=== PATIENT | male | born 1965 | race Caucasian/White ===

== ENCOUNTER 2018-04-20 10:42 | Inpatient (IN) ==
[2018-04-20] MEDS ORDERED: Ondansetron ODT 4 MG TAB.RAPDIS SL ONE (11:06)
[2018-04-20] MEDS ORDERED: *HR* LORazepam 1 MG TABLET PO ONE (11:06)
[2018-04-20] MEDS ORDERED: Famotidine 20 MG TABLET PO STA (11:06)
[2018-04-20] MEDS ORDERED: Multivit/Ca/Min/Fe/FA 1 TAB TABLET PO STA (11:07)
[2018-04-20] MEDS ORDERED: Thiamine (B-1) 100 MG TABLET PO ONE (11:07)
--- NOTE | 2018-04-20 11:11 | Emergency Department Note ---
Disposition Clinical Impression: Alcohol withdrawal delirium, acute, hyperactive Disposition: Admitted As Inpatient Condition: Fair Referrals: NONE,PCP [Primary Care Provider] - Psych HPI - General Chief Complaint: ED Psychiatric Symptoms Stated Complaint: Medical clearance for SHARMILA Time Seen by Provider: 04/20/18 10:50 Source: patient Mode of arrival: ambulatory Limitations: no limitations Nursing Notes Reviewed: Yes Vital Signs Reviewed: Yes - History of Present Illness HPI Narrative: Patient presents for evaluation of medical clearance. Patient is checking himself into [facility] detox center. Patient has a significant history of alcohol abuse. Patient drinks 20 beers daily for greater than 10 years. Patient states that he has gone through withdrawal several times. Patient states that he is starting to become slightly anxious and his stomach is a little upset. He is concerned that he is taking a lot of ibuprofen and it is upset because of this. The patient does not have fever or chills. Patient does have chest pain but said he was diagnosed with a broken rib on Saturday at [facility]. Patient does not have cough or productive sputum. Patient states his stomach is upset which he thinks is from ibuprofen use. Patient does not have abdominal tenderness. Patient overall does not look toxic but does appear to have mild anxiety and a slight tremor with his arms extended. The patient states that he can get treatment for his alcohol withdrawal at the center. The patient will get requested blood work as well as symptomatic treatment while in the emergency. - Related Data Home Medications Medication Instructions Recorded Confirmed Duloxetine HCl [Cymbalta] 60 mg PO DAILY 04/20/18 04/20/18 Gabapentin [Neurontin] 600 mg PO TID 04/20/18 04/20/18 Lisinopril [Zestril] 20 mg PO DAILY 04/20/18 04/20/18 Loratadine [Allergy Relief] 10 mg PO DAILY 04/20/18 04/20/18 Allergies Allergy/AdvReac Type Severity Reaction Status Date / Time ciprofloxacin [From Cipro] Allergy Hives Verified 04/20/18 10:47 codeine Allergy Nausea Verified 08/08/15 19:36 Review of Systems: CONSTITUTIONAL: No weight loss, fever, chills, weakness or fatigue. HEENT: Eyes: No visual changes. Ears, Nose, Throat: No hearing loss, difficulty talking or unable to swallow. SKIN: No rash or itching. CARDIOVASCULAR: Chest pain related to previously diagnosed rib fracture RESPIRATORY: No shortness of breath, cough or sputum. GASTROINTESTINAL: Nausea related to NSAID use No anorexia, vomiting or diarrhea. No abdominal pain or blood. GENITOURINARY: No burning on urination or hematuria. NEUROLOGICAL: No headache, dizziness, syncope, paralysis, ataxia, numbness or tingling in the extremities. No change in bowel or bladder control. MUSCULOSKELETAL: No muscle pain, back pain, joint pain or stiffness. Past Medical History - Past Medical History Medical history: Reports: no medical history Surgical history: Reports: orthopedic, other Psychiatric history: Reports: no psych history - Social History Smoking Status: Current every day smoker Smokeless Tobacco Status: No Alcohol use: Reports: none Drug use: Reports: opiates, other Physical Exam General: Mildly anxious but Well appearing, nontoxic, Head: Normocephalic Atraumatic Eyes: PERRL, EOMI ENT: Airway patent, no stridor Neck: supple, no meningismus Chest: Lungs clear to auscultation bilateral Cardiac: Regular rate and rhythm, no murmurs, rubs or gallops Abdomen: soft, nontender, nondistended; no guarding, rebound, or tenderness to percussion Skin: No rash, normal skin tone Neuro: Mild tremor to the upper extremities when held in front of his body Alert and Oriented to person, place, and time; No focal deficit, CN 2-12 symmetric and intact Course - Reevaluation(s) Reevaluation #1: The patient received initial medications by mouth secondary to him are to be beginning to have agitation. During his stay he did receive Zofran but still became nauseous enough to throw up his medications. The patient has become visibly more anxious as well as tremulous. Patient will receive IV hydration admission to the hospital for alcohol withdrawal as his facility is not able to us administer IV medications. - Consultations Consultation #1: Discussed with Dr. Haney. Patient accepted for admission. Vital Signs Temperature 98.2 F 04/20/18 10:48 Pulse Rate 83 04/20/18 10:48 Respiratory Rate 04/20/18 10:48 Blood Pressure 182/111 04/20/18 10:48 O2 Sat by Pulse Oximetry 97 04/20/18 10:48 Temperature 98.2 F 04/20/18 11:14 Pulse Rate 83 04/20/18 11:14 Respiratory Rate 20 04/20/18 11:14 Blood Pressure 182/111 04/20/18 11:14 O2 Sat by Pulse Oximetry 97 04/20/18 11:14 Oxygen Delivery Oxygen Delivery Room Air Psych - Lab Data Result diagrams: 04/20/18 11:24 04/20/18 11:24 Lab Results 04/20/18 04/20/18 04/20/18 Range/Units 11:05 11:05 11:24 WBC 7.4 (4.3-11.1) K/mcL RBC 4.80 (4.19-5.50) M/mcL Hgb 15.9 (12.9-16.9) g/dL Hct 44.3 (37.5-50.1) % MCV 92.3 (83.0-100.0) fL MCH 33.1 (28.0-33.3) pg MCHC 35.9 H (31.6-35.5) g/dL RDW 13.9 (11.5-14.5) % Plt Count 200 (140-400) K/mcL MPV 8.8 L (9.4-12.4) fL Immature Gran % 0.3 (0-4) % Seg Neutrophils % 61.4 % Lymphocytes % 27.4 % Monocytes % 7.0 % Eosinophils % 3.0 % Basophils % 0.9 % Neutrophils # 4.6 (1.6-8.9) K/mcL Lymphocytes # 2.0 (0.6-4.6) K/mcL Monocytes # 0.5 (0.0-1.3) K/mcL Eosinophils # 0.2 (0.0-0.6) K/mcL Basophils # 0.1 (0.0-0.2) K/mcL Sodium (136-145) mEq/L Potassium (3.5-5.1) mEq/L Chloride (98-107) mEq/L Carbon Dioxide (23-29) mEq/L BUN (6-20) mg/dL Creatinine (0.70-1.30) mg/dL Est GFR ( Amer) (> 60) Est GFR (Non-Af Amer) (> 60) BUN/Creatinine Ratio (6-26) Glucose (70-105) mg/dL Calculated Osmolality (280-300) Calcium (8.6-10.3) mg/dL Total Bilirubin (0.3-1.0) mg/dL AST (13-39) Units/L ALT (7-52) Units/L Alkaline Phosphatase (34-104) Units/L Serum Total Protein (6.4-8.9) g/dL Albumin (3.5-5.7) g/dL Globulin (2.4-3.5) g/dL Albumin/Globulin Ratio (1.1-2.2) Triglycerides (< 150) mg/dL Cholesterol (< 200) mg/dL LDL Cholesterol, Calc (0-99) mg/dL VLDL Cholesterol, Calc (< 31) mg/dL HDL Cholesterol (40-59) mg/dL Cholesterol/HDL Ratio (0-4.9) Urine Color Yellow (Yellow) Urine Clarity Clear (Clear) Urine pH 7.5 (5.0-8.0) pH Units Ur Specific [place] 1.009 L (1.010-1.025) Urine Protein Negative (Neg-Trace) mg/dL Urine Glucose (UA) Normal (Normal) mg/dL Urine Ketones Negative (Negative) mg/dL Urine Blood Negative (Negative) Urine Nitrite Negative (Negative) Urine Bilirubin Negative (Negative) Urine Urobilinogen Normal (Normal) mg/dL Ur Leukocyte Esterase Negative (Negative) Ur Culture Indicated? NO (NO) Urine Opiates Screen Negative (Oswlqk=045) ng/mL Ur Barbiturates Screen Negative (Dhobkj=182) ng/mL Ur Phencyclidine Scrn Negative (Cutoff=25) ng/mL Ur Amphetamines Screen Negative (Mfmess=7409) ng/mL U Benzodiazepines Scrn Negative (Grlvlp=049) ng/mL Urine Cocaine Screen Negative (Cutoff= 300) ng/mL U Marijuana (THC) Screen Negative (Cutoff = 50) ng/mL Ethyl Alcohol (Less than 10) mg/dL 04/20/18 04/20/18 Range/Units 11:24 11:24 WBC (4.3-11.1) K/mcL RBC (4.19-5.50) M/mcL Hgb (12.9-16.9) g/dL Hct (37.5-50.1) % MCV (83.0-100.0) fL MCH (28.0-33.3) pg MCHC (31.6-35.5) g/dL RDW (11.5-14.5) % Plt Count (140-400) K/mcL MPV (9.4-12.4) fL Immature Gran % (0-4) % Seg Neutrophils % % Lymphocytes % % Monocytes % % Eosinophils % % Basophils % % Neutrophils # (1.6-8.9) K/mcL Lymphocytes # (0.6-4.6) K/mcL Monocytes # (0.0-1.3) K/mcL Eosinophils # (0.0-0.6) K/mcL Basophils # (0.0-0.2) K/mcL Sodium 138 (136-145) mEq/L Potassium 3.6 (3.5-5.1) mEq/L Chloride 108 H (98-107) mEq/L Carbon Dioxide 25 (23-29) mEq/L BUN 13 (6-20) mg/dL Creatinine 1.20 (0.70-1.30) mg/dL Est GFR ( Amer) > 60 (> 60) Est GFR (Non-Af Amer) > 60 (> 60) BUN/Creatinine Ratio 11 (6-26) Glucose 95 (70-105) mg/dL Calculated Osmolality 286 (280-300) Calcium 9.6 (8.6-10.3) mg/dL Total Bilirubin 0.6 (0.3-1.0) mg/dL AST 34 (13-39) Units/L ALT 42 (7-52) Units/L Alkaline Phosphatase 93 (34-104) Units/L Serum Total Protein 7.5 (6.4-8.9) g/dL Albumin 4.2 (3.5-5.7) g/dL Globulin 3.3 (2.4-3.5) g/dL Albumin/Globulin Ratio 1.3 (1.1-2.2) Triglycerides 99 (< 150) mg/dL Cholesterol 154 (< 200) mg/dL LDL Cholesterol, Calc 82 (0-99) mg/dL VLDL Cholesterol, Calc 20 (< 31) mg/dL HDL Cholesterol 52 (40-59) mg/dL Cholesterol/HDL Ratio 3.0 (0-4.9) Urine Color (Yellow) Urine Clarity (Clear) Urine pH (5.0-8.0) pH Units Ur Specific [place] (1.010-1.025) Urine Protein (Neg-Trace) mg/dL Urine Glucose (UA) (Normal) mg/dL Urine Ketones (Negative) mg/dL Urine Blood (Negative) Urine Nitrite (Negative) Urine Bilirubin (Negative) Urine Urobilinogen (Normal) mg/dL Ur Leukocyte Esterase (Negative) Ur Culture Indicated? (NO) Urine Opiates Screen (Gocayd=840) ng/mL Ur Barbiturates Screen (Rphycu=904) ng/mL Ur Phencyclidine Scrn (Cutoff=25) ng/mL Ur Amphetamines Screen (Pfiiow=8621) ng/mL U Benzodiazepines Scrn (Qmfgfv=385) ng/mL Urine Cocaine Screen (Cutoff= 300) ng/mL U Marijuana (THC) Screen (Cutoff = 50) ng/mL Ethyl Alcohol < 10 (Less than 10) mg/dL Psychiatric Medical Clearance - Medical Clearance Checklist Medical History: No Social History Section defined Current Vitals: Last Vital Signs Temp 98.2 F 04/20/18 11:14 Pulse 83 04/20/18 11:14 Resp 20 04/20/18 11:14 BP 182/111 04/20/18 11:14 Pulse Ox 97 04/20/18 11:14 Psychiatric Lab Panel: Drug Levels and Toxicity 04/20/18 04/20/18 11:05 11:24 Urine Opiates Screen Negative Ur Barbiturates Screen Negative Ur Phencyclidine Scrn Negative Ur Amphetamines Screen Negative U Benzodiazepines Scrn Negative Urine Cocaine Screen Negative U Marijuana (THC) Screen Negative Ethyl Alcohol < 10 Abnormal Labs: Abnormal lab results MCHC 35.9 g/dL (31.6-35.5) H 04/20/18 11:24 MPV 8.8 fL (9.4-12.4) L 04/20/18 11:24 Chloride 108 mEq/L (98-107) H 04/20/18 11:24 Ur Specific [place] 1.009 (1.010-1.025) L 04/20/18 11:05 Statement of Medical Clearance: I have evaluated the patient, reviewed diagnostic information, and certify that the patient's medical condition is sufficiently stable that transfer to the psychiatric unit does not pose a significant risk of deterioration. Attestation Statement - Attestation Attestation: I, Hardik Trent DO, examined this patient [id number] and my medical decision-making was reviewed with Goyo Sierra DO, Resident Physician. I agree with the documented findings, disposition and treatment plan as described except to the extent set forth below. Please see my progress notes for details.
[2018-04-20 11:30] LABS: Bilirubin,Urine Negative (Negative); Blood,Urine Negative (Negative); Clarity,Urine Clear (Clear); Color,Urine Yellow (Yellow); Glucose,Urine (UA) Normal (Normal); Ketones,Urine Negative (Negative); Leukocyte Esterase,Urine Negative (Negative); Nitrite,Urine Negative (Negative); PH,Urine 7.5 pH Units (5.0-8.0); Protein,Urine Negative (Neg-Trace); Specific Gravity,Urine 1.009 (1.010-1.025); Urobilinogen,Urine Normal (Normal)
[2018-04-20 11:39] LABS: Basophils # 0.1 K/mcL (0.0-0.2); Basophils % 0.9 %; Eosinophils # 0.2 K/mcL (0.0-0.6); Hematocrit 44.3 % (37.5-50.1); Hemoglobin 15.9 g/dL (12.9-16.9); Immature Granulocytes % 0.3 % (0-4); Lymphocytes % 27.4 %; Mean Corpuscular HGB Conc 35.9 g/dL (31.6-35.5); Mean Corpuscular Hemoglobin 33.1 pg (28.0-33.3); Mean Corpuscular Volume 92.3 fL (83.0-100.0); Mean Platelet Volume 8.8 fL (9.4-12.4); Monocytes # 0.5 K/mcL (0.0-1.3); Neutrophils # 4.6 K/mcL (1.6-8.9); Platelet Count 200 K/mcL (140-400); Red Cell Distribution Width 13.9 % (11.5-14.5); Segmented Neutrophils % 61.4 %
[2018-04-20 11:49] LABS: Amphetamine Screen,Urine Negative ng/mL (Cutoff=1000); Barbiturate Screen,Urine Negative ng/mL (Cutoff=200); Benzodiazepines Screen,Urine Negative ng/mL (Cutoff=200); Cannabinoid Screen,Urine Negative ng/mL (Cutoff = 50); Cocaine Screen,Urine Negative ng/mL (Cutoff= 300); Opiate Screen,Urine Negative ng/mL (Cutoff=300); Phencyclidine Screen,Urine Negative ng/mL (Cutoff=25)
[2018-04-20 11:58] LABS: Alanine Aminotransferase 42 Units/L (7-52); Albumin 4.2 g/dL (3.5-5.7); Albumin/Globulin Ratio 1.3 (1.1-2.2); Alkaline Phosphatase 93 Units/L (34-104); Aspartate Amino Transferase 34 Units/L (13-39); BUN/Creatinine Ratio 11 (6-26); Bilirubin,Total 0.6 mg/dL (0.3-1.0); Blood Urea Nitrogen 13 mg/dL (6-20); Calcium 9.6 mg/dL (8.6-10.3); Carbon Dioxide 25 mEq/L (23-29); Chloride 108 mEq/L (98-107); Cholesterol 154 mg/dL (< 200); Globulin 3.3 g/dL (2.4-3.5); Glucose 95 mg/dL (70-105); HDL Cholesterol 52 mg/dL (40-59); LDL Cholesterol,Calculated 82 mg/dL (0-99); Osmolality,Calculated 286 (280-300); Potassium 3.6 mEq/L (3.5-5.1); Sodium 138 mEq/L (136-145); Total Protein 7.5 g/dL (6.4-8.9); Triglycerides 99 mg/dL (< 150); eGFR For African Americans > 60 (> 60); eGFR For Non-African Americans > 60 (> 60)
[2018-04-20] MEDS ORDERED: *HR* LORazepam 2 MG/ML VIAL IM ONE (11:59)
--- NOTE | 2018-04-20 12:00 | Emergency Department Note ---
Disposition Clinical Impression: Alcohol withdrawal delirium, acute, hyperactive Disposition: Admitted As Inpatient Condition: Fair Time of Disposition: 14:15 General Adult HPI - General Chief complaint: ED Psychiatric Symptoms Stated complaint: Medical clearance for SHARMILA Time Seen by Provider: 04/20/18 10:50 Source: patient Mode of arrival: ambulatory Limitations: no limitations - History of Present Illness Pain Scale: 4 - Related Data Home Medications Medication Instructions Recorded Confirmed Duloxetine HCl [Cymbalta] 60 mg PO DAILY 04/20/18 04/20/18 Gabapentin [Neurontin] 600 mg PO TID 04/20/18 04/20/18 Lisinopril [Zestril] 20 mg PO DAILY 04/20/18 04/20/18 Loratadine [Allergy Relief] 10 mg PO DAILY 04/20/18 04/20/18 Allergies Allergy/AdvReac Type Severity Reaction Status Date / Time ciprofloxacin [From Cipro] Allergy Hives Verified 04/20/18 10:47 codeine Allergy Nausea Verified 08/08/15 19:36 Past Medical History - Past Medical History Medical history: Reports: no medical history Surgical history: Reports: orthopedic, other Psychiatric history: Reports: no psych history - Social History Smoking Status: Current every day smoker Smokeless Tobacco Status: No Alcohol use: Reports: none Drug use: Reports: opiates, other Physical Exam - General Limitations: no limitations General appearance: alert, anxious Course Vital Signs Temperature 98.2 F 04/20/18 10:48 Pulse Rate 83 04/20/18 10:48 Respiratory Rate 20 04/20/18 10:48 Blood Pressure 182/111 04/20/18 10:48 O2 Sat by Pulse Oximetry 97 04/20/18 10:48 Temperature 98.2 F 04/20/18 11:14 Pulse Rate 87 04/20/18 13:07 Respiratory Rate 18 04/20/18 13:07 Blood Pressure 170/109 04/20/18 13:07 O2 Sat by Pulse Oximetry 97 04/20/18 13:07 Oxygen Delivery Oxygen Delivery Room Air Medical Decision Making - Lab Data Result diagrams: 04/20/18 11:24 04/20/18 11:24 Lab Results 04/20/18 04/20/18 04/20/18 Range/Units 11:05 11:05 11:24 WBC 7.4 (4.3-11.1) K/mcL RBC 4.80 (4.19-5.50) M/mcL Hgb 15.9 (12.9-16.9) g/dL Hct 44.3 (37.5-50.1) % MCV 92.3 (83.0-100.0) fL MCH 33.1 (28.0-33.3) pg MCHC 35.9 H (31.6-35.5) g/dL RDW 13.9 (11.5-14.5) % Plt Count 200 (140-400) K/mcL MPV 8.8 L (9.4-12.4) fL Immature Gran % 0.3 (0-4) % Seg Neutrophils % 61.4 % Lymphocytes % 27.4 % Monocytes % 7.0 % Eosinophils % 3.0 % Basophils % 0.9 % Neutrophils # 4.6 (1.6-8.9) K/mcL Lymphocytes # 2.0 (0.6-4.6) K/mcL Monocytes # 0.5 (0.0-1.3) K/mcL Eosinophils # 0.2 (0.0-0.6) K/mcL Basophils # 0.1 (0.0-0.2) K/mcL Sodium (136-145) mEq/L Potassium (3.5-5.1) mEq/L Chloride (98-107) mEq/L Carbon Dioxide (23-29) mEq/L BUN (6-20) mg/dL Creatinine (0.70-1.30) mg/dL Est GFR ( Amer) (> 60) Est GFR (Non-Af Amer) (> 60) BUN/Creatinine Ratio (6-26) Glucose (70-105) mg/dL Calculated Osmolality (280-300) Calcium (8.6-10.3) mg/dL Total Bilirubin (0.3-1.0) mg/dL AST (13-39) Units/L ALT (7-52) Units/L Alkaline Phosphatase (34-104) Units/L Serum Total Protein (6.4-8.9) g/dL Albumin (3.5-5.7) g/dL Globulin (2.4-3.5) g/dL Albumin/Globulin Ratio (1.1-2.2) Triglycerides (< 150) mg/dL Cholesterol (< 200) mg/dL LDL Cholesterol, Calc (0-99) mg/dL VLDL Cholesterol, Calc (< 31) mg/dL HDL Cholesterol (40-59) mg/dL Cholesterol/HDL Ratio (0-4.9) Urine Color Yellow (Yellow) Urine Clarity Clear (Clear) Urine pH 7.5 (5.0-8.0) pH Units Ur Specific [place] 1.009 L (1.010-1.025) Urine Protein Negative (Neg-Trace) mg/dL Urine Glucose (UA) Normal (Normal) mg/dL Urine Ketones Negative (Negative) mg/dL Urine Blood Negative (Negative) Urine Nitrite Negative (Negative) Urine Bilirubin Negative (Negative) Urine Urobilinogen Normal (Normal) mg/dL Ur Leukocyte Esterase Negative (Negative) Ur Culture Indicated? NO (NO) Urine Opiates Screen Negative (Qxdqmz=184) ng/mL Ur Barbiturates Screen Negative (Vunqyw=685) ng/mL Ur Phencyclidine Scrn Negative (Cutoff=25) ng/mL Ur Amphetamines Screen Negative (Vtkyve=1143) ng/mL U Benzodiazepines Scrn Negative (Tetdzm=904) ng/mL Urine Cocaine Screen Negative (Cutoff= 300) ng/mL U Marijuana (THC) Screen Negative (Cutoff = 50) ng/mL Ethyl Alcohol (Less than 10) mg/dL 04/20/18 04/20/18 Range/Units 11:24 11:24 WBC (4.3-11.1) K/mcL RBC (4.19-5.50) M/mcL Hgb (12.9-16.9) g/dL Hct (37.5-50.1) % MCV (83.0-100.0) fL MCH (28.0-33.3) pg MCHC (31.6-35.5) g/dL RDW (11.5-14.5) % Plt Count (140-400) K/mcL MPV (9.4-12.4) fL Immature Gran % (0-4) % Seg Neutrophils % % Lymphocytes % % Monocytes % % Eosinophils % % Basophils % % Neutrophils # (1.6-8.9) K/mcL Lymphocytes # (0.6-4.6) K/mcL Monocytes # (0.0-1.3) K/mcL Eosinophils # (0.0-0.6) K/mcL Basophils # (0.0-0.2) K/mcL Sodium 138 (136-145) mEq/L Potassium 3.6 (3.5-5.1) mEq/L Chloride 108 H (98-107) mEq/L Carbon Dioxide 25 (23-29) mEq/L BUN 13 (6-20) mg/dL Creatinine 1.20 (0.70-1.30) mg/dL Est GFR ( Amer) > 60 (> 60) Est GFR (Non-Af Amer) > 60 (> 60) BUN/Creatinine Ratio 11 (6-26) Glucose 95 (70-105) mg/dL Calculated Osmolality 286 (280-300) Calcium 9.6 (8.6-10.3) mg/dL Total Bilirubin 0.6 (0.3-1.0) mg/dL AST 34 (13-39) Units/L ALT 42 (7-52) Units/L Alkaline Phosphatase 93 (34-104) Units/L Serum Total Protein 7.5 (6.4-8.9) g/dL Albumin 4.2 (3.5-5.7) g/dL Globulin 3.3 (2.4-3.5) g/dL Albumin/Globulin Ratio 1.3 (1.1-2.2) Triglycerides 99 (< 150) mg/dL Cholesterol 154 (< 200) mg/dL LDL Cholesterol, Calc 82 (0-99) mg/dL VLDL Cholesterol, Calc 20 (< 31) mg/dL HDL Cholesterol 52 (40-59) mg/dL Cholesterol/HDL Ratio 3.0 (0-4.9) Urine Color (Yellow) Urine Clarity (Clear) Urine pH (5.0-8.0) pH Units Ur Specific [place] (1.010-1.025) Urine Protein (Neg-Trace) mg/dL Urine Glucose (UA) (Normal) mg/dL Urine Ketones (Negative) mg/dL Urine Blood (Negative) Urine Nitrite (Negative) Urine Bilirubin (Negative) Urine Urobilinogen (Normal) mg/dL Ur Leukocyte Esterase (Negative) Ur Culture Indicated? (NO) Urine Opiates Screen (Pdijka=208) ng/mL Ur Barbiturates Screen (Puqihm=987) ng/mL Ur Phencyclidine Scrn (Cutoff=25) ng/mL Ur Amphetamines Screen (Wruhjk=3374) ng/mL U Benzodiazepines Scrn (Tjvsox=516) ng/mL Urine Cocaine Screen (Cutoff= 300) ng/mL U Marijuana (THC) Screen (Cutoff = 50) ng/mL Ethyl Alcohol < 10 (Less than 10) mg/dL Attestation Statement - Attestation Attestation: I, Hardik Trent DO, examined this patient [id number] and my medical decision-making was reviewed with Goyo Sierra DO, Resident Physician. I agree with the documented findings, disposition and treatment plan as described except to the extent set forth below. Please see my progress notes for details. . 53-year-old male presents to the emergency room today for evaluation of alcohol withdrawal medical clearance to be placed in substance abuse facility. Patient has not drank alcohol today. He has a history of trying to stop in the past but had troubles with tremors and significant withdrawal syndrome. Patient has been a heavy drinker for quite a long time. Vital signs are reviewed and are stable. Patient's head is atraumatic pupils are round reactive oropharynx is patent. Lungs are clear heart is regular abdomen is soft. No guarding or rigidity no peritoneal symptoms at this time. Patient will be provided with oral medications at this point in attempts to get medical clearance completed and have the patient seen and treated at an outside facility. Vital signs are stable. Currently denying chest pain shortness of breath headache vision changes nausea vomiting or diarrhea. Denies any other trauma or injury. He has not taken any new medications. Patient will be evaluated and then discuss disposition. 1200 Patient has retching vomiting and tremors at this point. Intermuscular dose of Ativan will be given IV will be started and patient will be brought in the hospital for management of acute delirium tremens. Patient is concerning for significant alcohol withdrawal requiring medical intervention that is not suitable for the outpatient setting at this point. Patient is otherwise stable but will require definitive management in the hospital setting. See detailed documentation of physical exam, medical intervention, medical decision-making and disposition in the resident physician's note.
[2018-04-20] MEDS ORDERED: 0.9 % Sodium Chloride 1,000 ML IVC ONE (12:05)
[2018-04-20] MEDS ORDERED: *HR* LORazepam 2 MG/ML VIAL IVP ONE ×2 (12:05→12:33)
--- NOTE | 2018-04-20 14:17 | Internal Med History&Physical ---
Date of Encounter: 04/20/18 Time of Encounter: 10:00 Internal Medicine - H&P: HPI Chief complaint: ETOH withdrawal History of present illness: 53-year-old male with past medical history of alcohol abuse and hypertension presents to the emergency room today for evaluation of alcohol withdrawal medical clearance to be placed in substance abuse facility. The patient has history of attempting to quit drinking alcohol however trouble with withdrawal symptoms was always a barrier for him to quit. While in the Er he start to have retching vomiting and tremors. Intermuscular dose of Ativan was given and patient was admitted for further evaluation. Past Med Surg Social Fam HX - Past Medical History Medical history: no medical history Psychiatric history: no psych history - Past Surgical History Surgical History: orthopedic, other - Social History Smoking Status: Current every day smoker Smokeless Tobacco Status: No Alcohol use: none Drug use: opiates, other Internal Medicine - H&P: Meds Duloxetine HCl [Cymbalta] 60 mg PO DAILY 04/20/18 [History] Gabapentin [Neurontin] 600 mg PO TID 04/20/18 [History] Lisinopril [Zestril] 20 mg PO DAILY 04/20/18 [History] Loratadine [Allergy Relief] 10 mg PO DAILY 04/20/18 [History] Chlordiazepoxide [Librium] See Taper PO DAILY 9 Days #33 capsule 04/25/18 [Rx] Folic Acid 1 mg PO DAILY #0 tablet 04/25/18 [Rx] Multivit/Ca/Min/Fe/FA [Thera M Plus] 1 tab PO DAILY #0 tablet 04/25/18 [Rx] Nicotine Patch [Nicoderm] 21 mg TD DAILY patch.td24 04/25/18 [Rx] Thiamine (B-1) [Vitamin B-1] 100 mg PO DAILY #0 tablet 04/25/18 [Rx] 3 Allergy/AdvReac Type Severity Reaction Status Date / Time ciprofloxacin [From Cipro] Allergy Hives Verified 04/20/18 10:47 codeine Allergy Nausea Verified 08/08/15 19:36 ROS unobtainable: due to mental status All Systems PM: A 10-system review of systems was performed and is negative for pertinent findings except as documented above in the HPI. - Constitutional Vitals: Temp Pulse Resp BP Pulse Ox 98.2 F 87 18 170/109 97 04/20/18 11:14 04/20/18 13:07 04/20/18 13:07 04/20/18 13:07 04/20/18 13:07 General appearance: Present: disheveled, mild distress - Eye Eye exam: Present: PERRL, conjuntiva pink, sclera anicteric Pupils: Present: PERRL - Neck Neck exam general surgery: Present: supple, trachea midline. Absent: lymphadenopathy - Respiratory Respiratory exam: Present: CTAB. Absent: accessory muscle use, rales, rhonchi, wheezes - Cardiovascular Cardiovascular exam: Present: RRR, +S1, +S2. Absent: diastolic murmur, gallop, rubs, systolic murmur - Extremities Exam Extremities exam: Present: warm, radial pulses palpable and symmetrical. Absent : calf tenderness, cyanotic, pedal edema Internal Med - H&P Results - Labs CBC & Chem 7: 04/25/18 04:45 04/25/18 04:45 - Assessment and plan (1) Alcohol withdrawal delirium, acute, hyperactive Status: Resolved Assessment and plan: We will start SIWA protocol with Ativan. (2) Hypertension Status: Chronic Assessment and plan: We will cont home meds Qualifiers: Hypertension type: essential hypertension Qualified Code(s): I10 - Essential (primary) hypertension (3) DVT prophylaxis Status: Acute Assessment and plan: Sc heparin - Time Spent With Patient Total time spent is greater than 50% in coordination of care (as documented) at patient's floor/unit and/or counseling patient:
[2018-04-20] MEDS ORDERED: Acetaminophen 325 MG TABLET PO PRN (14:19)
[2018-04-20] MEDS ORDERED: Naloxone 0.4 MG/ML INJ IVP PRN (14:19)
[2018-04-20] MEDS: 0.9 % Sodium Chloride 1,000 ML IVC SCH ×2 (14:59→23:34)
[2018-04-20 16:24] LABS: INR 1.1; Prothrombin Time 11.3 Seconds (9.4-12.1)
[2018-04-20 16:32] LABS: Activated Partial Thrombo Time 27.4 Seconds (26.0-36.0)
[2018-04-20 16:37] LABS: Amylase 58 Units/L (29-103); Lipase 30 Units/L (11-82)
[2018-04-20] MEDS ORDERED: Thiamine (B-1) 100 MG, Folic Acid 1 MG, MVI, adult with vitamin K 10 ML in 0.9 % Sodi... IVPB SCH (18:00)
[2018-04-20] MEDS: Gabapentin 300 MG CAPSULE PO SCH (20:32)
[2018-04-20] MEDS: Nicotine 21 MG PATCH.TD24 TD SCH (20:36)
[2018-04-20] MEDS: *HR* LORazepam 2 MG/ML VIAL IVP PRN ×3 (21:13→23:20)
[2018-04-20] MEDS: *HR* Promethazine 25 MG/ML VIAL IVP PRN (23:25)
[2018-04-21] MEDS: *HR* LORazepam 2 MG/ML VIAL IVP PRN ×7 (00:42→17:19)
[2018-04-21 01:30] LABS: Hepatitis A Antibody IgM Nonreactive (Nonreactive); Hepatitis B Core IgM Nonreactive (Nonreactive)
[2018-04-21 02:15] LABS: Hepatitis B Surface Antigen Reactive (Nonreactive); Hepatitis C Virus Antibody Reactive (Nonreactive)
[2018-04-21] MEDS ORDERED: diazePAM 10 MG/2 ML SYRINGE IVP ONE (05:08)
[2018-04-21 05:42] LABS: Basophils # 0.1 K/mcL (0.0-0.2); Basophils % 0.8 %; Eosinophils # 0.2 K/mcL (0.0-0.6); Eosinophils % 2.7 %; Hemoglobin 12.9 g/dL (12.9-16.9); Immature Granulocytes % 0.2 % (0-4); Lymphocytes % 30.3 %; Mean Corpuscular HGB Conc 33.9 g/dL (31.6-35.5); Mean Corpuscular Hemoglobin 31.8 pg (28.0-33.3); Mean Corpuscular Volume 93.6 fL (83.0-100.0); Mean Platelet Volume 9.3 fL (9.4-12.4); Monocytes # 0.5 K/mcL (0.0-1.3); Monocytes % 7.9 %; Neutrophils # 3.9 K/mcL (1.6-8.9); Platelet Count 158 K/mcL (140-400); Red Blood Count 4.06 M/mcL (4.19-5.50); Red Cell Distribution Width 13.9 % (11.5-14.5); Segmented Neutrophils % 58.1 %
[2018-04-21 06:05] LABS: Alanine Aminotransferase 29 Units/L (7-52); Albumin 3.3 g/dL (3.5-5.7); Albumin/Globulin Ratio 1.2 (1.1-2.2); Alkaline Phosphatase 72 Units/L (34-104); Aspartate Amino Transferase 24 Units/L (13-39); BUN/Creatinine Ratio 10 (6-26); Bilirubin,Total 0.5 mg/dL (0.3-1.0); Blood Urea Nitrogen 13 mg/dL (6-20); Calcium 8.9 mg/dL (8.6-10.3); Carbon Dioxide 21 mEq/L (23-29); Chloride 117 mEq/L (98-107); Chol/HDL Ratio 3.1 (0-4.9); Cholesterol 128 mg/dL (< 200); Globulin 2.7 g/dL (2.4-3.5); Glucose 103 mg/dL (70-105); HDL Cholesterol 41 mg/dL (40-59); LDL Cholesterol,Calculated 67 mg/dL (0-99); Magnesium 1.9 mg/dL (1.6-2.6); Osmolality,Calculated 292 (280-300); Phosphorous 2.5 mg/dL (2.7-4.5); Potassium 3.5 mEq/L (3.5-5.1); Sodium 141 mEq/L (136-145); Triglycerides 102 mg/dL (< 150); eGFR For African Americans > 60 (> 60); eGFR For Non-African Americans > 60 (> 60)
[2018-04-21] MEDS: Folic Acid 1 MG TABLET PO SCH (07:36)
[2018-04-21] MEDS: Loratadine 10 MG TABLET PO SCH (07:36)
[2018-04-21] MEDS: Nicotine 21 MG PATCH.TD24 TD SCH (07:37)
[2018-04-21] MEDS: Gabapentin 300 MG CAPSULE PO SCH ×3 (07:37→21:22)
[2018-04-21] MEDS: Lisinopril 20 MG TABLET PO SCH (07:37)
[2018-04-21] MEDS: *HR* HYDROcodone/Acet 5/325 mg TABLET PO PRN (07:42)
--- NOTE | 2018-04-21 13:10 | Internal Med Progress Note ---
Date of Encounter: 04/21/18 Time of Encounter: 09:45 - Assessment and plan (1) Alcohol withdrawal delirium, acute, hyperactive Current Visit: Yes Status: Acute Assessment and plan: Continue current management per [facility] protocol. We will also place patient on Librium. powder worker consulted to look into arrangements for alcohol rehabilitation for the patient. Continue supportive care with multivitamins and thiamine and folic acid. (2) Hypertension Current Visit: Yes Status: Chronic Assessment and plan: Uncontrolled. Continue lisinopril. We will also start amlodipine Qualifiers: Hypertension type: essential hypertension Qualified Code(s): I10 - Essential (primary) hypertension (3) DVT prophylaxis Current Visit: Yes Status: Acute Assessment and plan: Patient is ambulating at this time. We will add SCDs while lying down. - Time Spent With Patient Total time spent is greater than 50% in coordination of care (as documented) at patient's floor/unit and/or counseling patient: - Subjective Interval history: Patient complains of some hallucinations and tremors. He is concerned about his chronic alcohol abuse. He wishes to get into treatment for it. He has been through alcohol rehabilitation before and feels that it helped him a lot. - Constitutional Vitals: Temp Pulse Resp BP Pulse Ox 97.8 F 104 17 165/107 94 04/21/18 11:38 04/21/18 11:38 04/21/18 11:38 04/21/18 11:38 04/21/18 11:38 General appearance: Present: cooperative, disheveled, mild distress, A&O X 3, answers questions appropriately - Neck Neck exam general surgery: Present: supple, trachea midline. Absent: lymphadenopathy - Cardiovascular Cardiovascular exam: Present: RRR, +S1, +S2. Absent: diastolic murmur, gallop, rubs, systolic murmur - GI/Abdominal GI/Abdominal exam: Present: normal bowel sounds, soft, no peritoneal signs. Absent: distended, tenderness - Extremities Exam Extremities exam: Present: warm, radial pulses palpable and symmetrical. Absent : calf tenderness, cyanotic, pedal edema - Neurological Exam Neurological exam: Present: CN II-XII intact, oriented X3, no focal deficits. Absent: facial droop, speech deficit Additional comments: Tremors present - Psychiatric Psychiatric exam: Present: depressed, flat affect Internal Medicine: Result - Labs CBC & Chem 7: 04/21/18 04:43 04/21/18 04:43 Labs: Short CBC 04/21/18 Range/Units 04:43 WBC 6.6 (4.3-11.1) K/mcL Hgb 12.9 D (12.9-16.9) g/dL Hct 38.0 (37.5-50.1) % Plt Count 158 (140-400) K/mcL Neutrophils # 3.9 (1.6-8.9) K/mcL BMP 04/21/18 04:43 Sodium 141 Potassium 3.5 Chloride 117 H Carbon Dioxide 21 L BUN 13 Creatinine 1.25 Glucose 103 Calcium 8.9 Liver Function 04/21/18 Range/Units 04:43 Total Bilirubin 0.5 (0.3-1.0) mg/dL AST 24 (13-39) Units/L ALT 29 (7-52) Units/L Alkaline Phosphatase 72 (34-104) Units/L Albumin 3.3 L (3.5-5.7) g/dL - ABG Interpretation ABG results: PT/INR, D-dimer PT 11.3 Seconds (9.4-12.1) 04/20/18 15:43 Consult Discharge Plan - Plan Referrals: NONE,PCP [Primary Care Provider] -
[2018-04-21] MEDS: Multivit/Ca/Min/Fe/FA 1 TAB TABLET PO SCH (14:00)
[2018-04-21] MEDS: Thiamine (B-1) 100 MG TABLET PO SCH (14:00)
[2018-04-21] MEDS: amLODIPine 5 MG TABLET PO SCH (17:19)
[2018-04-22] MEDS: *HR* LORazepam 2 MG/ML VIAL IVP PRN ×4 (07:53→21:26)
[2018-04-22] MEDS: Nicotine 21 MG PATCH.TD24 TD SCH (07:54)
[2018-04-22] MEDS: Folic Acid 1 MG TABLET PO SCH (07:55)
[2018-04-22] MEDS: Loratadine 10 MG TABLET PO SCH (07:55)
[2018-04-22] MEDS: Multivit/Ca/Min/Fe/FA 1 TAB TABLET PO SCH (07:56)
[2018-04-22] MEDS: amLODIPine 5 MG TABLET PO SCH (07:56)
[2018-04-22] MEDS: Gabapentin 300 MG CAPSULE PO SCH ×3 (07:56→20:48)
[2018-04-22] MEDS: Lisinopril 20 MG TABLET PO SCH (07:57)
[2018-04-22] MEDS: Thiamine (B-1) 100 MG TABLET PO SCH (07:57)
[2018-04-22] MEDS: *HR* HYDROcodone/Acet 5/325 mg TABLET PO PRN (08:36)
--- NOTE | 2018-04-22 10:13 | Internal Med Progress Note ---
Date of Encounter: 04/22/18 Time of Encounter: 10:11 - Assessment and plan (1) Alcohol withdrawal delirium, acute, hyperactive Current Visit: Yes Status: Acute Assessment and plan: Continue current management per [facility] protocol. Continue Librium. Continue supportive care with multivitamins and thiamine and folic acid. wardrobe specialty worker consulted to look into arrangements for alcohol rehabilitation for the patient. (2) Hypertension Current Visit: Yes Status: Chronic Assessment and plan: Blood pressure has been elevated. Continue home lisinopril Continue amlodipine which was started during this admisison. Overall BP is improving. Qualifiers: Hypertension type: essential hypertension Qualified Code(s): I10 - Essential (primary) hypertension (3) DVT prophylaxis Current Visit: Yes Status: Acute Assessment and plan: Patient is ambulating at this time. We will add SCDs while lying down. - Time Spent With Patient Total time spent is greater than 50% in coordination of care (as documented) at patient's floor/unit and/or counseling patient: - Subjective Interval history: No acute events. patient complaints of headache. He denies retching, vomiting and tremors. - Constitutional Vitals: Temp Pulse Resp BP Pulse Ox 98.2 F 71 18 146/89 96 04/22/18 06:43 04/22/18 06:43 04/22/18 06:43 04/22/18 06:43 04/22/18 06:43 General appearance: Present: cooperative, disheveled, mild distress, A&O X 3, answers questions appropriately - Head Head exam: Present: atraumatic, normocephalic - Eye Eye exam: Present: PERRL, conjuntiva pink, sclera anicteric Pupils: Present: PERRL - Neck Neck exam general surgery: Present: supple, trachea midline. Absent: lymphadenopathy - Respiratory Respiratory exam: Present: CTAB. Absent: accessory muscle use, rales, rhonchi, wheezes - Cardiovascular Cardiovascular exam: Present: RRR, +S1, +S2. Absent: diastolic murmur, gallop, rubs, systolic murmur - GI/Abdominal GI/Abdominal exam: Present: normal bowel sounds, soft, no peritoneal signs. Absent: distended, tenderness - Extremities Exam Extremities exam: Present: warm, radial pulses palpable and symmetrical. Absent : calf tenderness, cyanotic, pedal edema - Neurological Exam Neurological exam: Present: CN II-XII intact, oriented X3, no focal deficits. Absent: pronater drift, facial droop, speech deficit - Skin Skin exam: Present: dry, intact Internal Medicine: Result - Labs CBC & Chem 7: 04/21/18 04:43 04/21/18 04:43 - ABG Interpretation ABG results: PT/INR, D-dimer PT 11.3 Seconds (9.4-12.1) 04/20/18 15:43 Consult Discharge Plan - Plan Referrals: NONE,PCP [Primary Care Provider] -
[2018-04-22] MEDS: *HR* Promethazine 25 MG/ML VIAL IVP PRN ×2 (11:34→21:26)
[2018-04-22] MEDS: Ibuprofen 400 MG TABLET PO PRN (13:44)
[2018-04-23] MEDS: Ibuprofen 400 MG TABLET PO PRN ×2 (04:46→14:11)
[2018-04-23 05:31] LABS: Basophils # 0.1 K/mcL (0.0-0.2); Basophils % 0.7 %; Eosinophils # 0.4 K/mcL (0.0-0.6); Eosinophils % 6.2 %; Hematocrit 45.9 % (37.5-50.1); Immature Granulocytes % 0.3 % (0-4); Lymphocytes # 2.3 K/mcL (0.6-4.6); Lymphocytes % 33.4 %; Mean Corpuscular HGB Conc 34.4 g/dL (31.6-35.5); Mean Corpuscular Hemoglobin 31.9 pg (28.0-33.3); Mean Corpuscular Volume 92.5 fL (83.0-100.0); Mean Platelet Volume 8.7 fL (9.4-12.4); Monocytes # 0.5 K/mcL (0.0-1.3); Monocytes % 7.6 %; Neutrophils # 3.6 K/mcL (1.6-8.9); Platelet Count 194 K/mcL (140-400); Red Blood Count 4.96 M/mcL (4.19-5.50); Red Cell Distribution Width 13.8 % (11.5-14.5); Segmented Neutrophils % 51.8 %
[2018-04-23 05:35] LABS: Hemoglobin 15.8 g/dL (12.9-16.9)
[2018-04-23] MEDS: *HR* LORazepam 2 MG/ML VIAL IVP PRN ×6 (05:37→20:45)
[2018-04-23 05:52] LABS: BUN/Creatinine Ratio 15 (6-26); Blood Urea Nitrogen 16 mg/dL (6-20); Calcium 9.1 mg/dL (8.6-10.3); Carbon Dioxide 21 mEq/L (23-29); Chloride 110 mEq/L (98-107); Glucose 88 mg/dL (70-105); Osmolality,Calculated 289 (280-300); Potassium 3.6 mEq/L (3.5-5.1); Sodium 139 mEq/L (136-145); eGFR For African Americans > 60 (> 60); eGFR For Non-African Americans > 60 (> 60)
[2018-04-23] MEDS: *HR* Promethazine 25 MG/ML VIAL IVP PRN (06:18)
[2018-04-23] MEDS: Gabapentin 300 MG CAPSULE PO SCH ×3 (09:01→20:44)
[2018-04-23] MEDS: Folic Acid 1 MG TABLET PO SCH (09:02)
[2018-04-23] MEDS: amLODIPine 5 MG TABLET PO SCH (09:02)
[2018-04-23] MEDS: Thiamine (B-1) 100 MG TABLET PO SCH (09:02)
[2018-04-23] MEDS: Loratadine 10 MG TABLET PO SCH (09:02)
[2018-04-23] MEDS: Nicotine 21 MG PATCH.TD24 TD SCH (09:02)
[2018-04-23] MEDS: Lisinopril 20 MG TABLET PO SCH (09:02)
[2018-04-23] MEDS: Multivit/Ca/Min/Fe/FA 1 TAB TABLET PO SCH (09:02)
--- NOTE | 2018-04-23 12:47 | Internal Med Progress Note ---
Date of Encounter: 04/23/18 Time of Encounter: 12:45 - Assessment and plan (1) Alcohol withdrawal delirium, acute, hyperactive Current Visit: Yes Status: Acute Assessment and plan: Continue current management per [facility] protocol. Continue supportive care with multivitamins and thiamine and folic acid. rehabilitation worker consulted to look into arrangements for alcohol rehabilitation for the patient. Currently CIWA scores increasing most recently 21. Will increase librium to 100 mg TID and closely monitor. (2) Hypertension Current Visit: Yes Status: Chronic Assessment and plan: Blood pressure initially was elevated. Continue home lisinopril and amlodipine which was started during this admisison. BP is stable. Qualifiers: Hypertension type: essential hypertension Qualified Code(s): I10 - Essential (primary) hypertension (3) DVT prophylaxis Current Visit: Yes Status: Acute Assessment and plan: SCDs while lying down. - Time Spent With Patient Total time spent is greater than 50% in coordination of care (as documented) at patient's floor/unit and/or counseling patient: - Subjective Interval history: Patient no longer has headache but now has persecutory hallucinations. Vital signs have been stable. - Constitutional Vitals: Temp Pulse Resp BP Pulse Ox 97.5 F L 91 16 113/79 95 04/23/18 10:19 04/23/18 10:19 04/23/18 10:19 04/23/18 10:19 04/23/18 10:19 General appearance: Present: cooperative, disheveled, no acute distress, answers questions appropriately Exam: Not aware of situation. - Head Head exam: Present: atraumatic, normocephalic - Eye Eye exam: Present: PERRL, conjuntiva pink, sclera anicteric Pupils: Present: PERRL - Neck Neck exam general surgery: Present: supple, trachea midline. Absent: lymphadenopathy - Respiratory Respiratory exam: Present: CTAB. Absent: accessory muscle use, rales, rhonchi, wheezes - Cardiovascular Cardiovascular exam: Present: RRR, +S1, +S2. Absent: diastolic murmur, gallop, rubs, systolic murmur - GI/Abdominal GI/Abdominal exam: Present: normal bowel sounds, soft, no peritoneal signs. Absent: distended, tenderness - Extremities Exam Extremities exam: Present: warm, radial pulses palpable and symmetrical. Absent : calf tenderness, cyanotic, pedal edema - Neurological Exam Neurological exam: Present: CN II-XII intact, oriented X3, no focal deficits. Absent: pronater drift, facial droop, speech deficit - Skin Skin exam: Present: dry, intact Internal Medicine: Result - Labs CBC & Chem 7: 04/23/18 05:10 04/23/18 05:10 Labs: Short CBC 04/23/18 Range/Units 05:10 WBC 7.0 (4.3-11.1) K/mcL Hgb 15.8 D (12.9-16.9) g/dL Hct 45.9 (37.5-50.1) % Plt Count 194 (140-400) K/mcL Neutrophils # 3.6 (1.6-8.9) K/mcL BMP 04/23/18 05:10 Sodium 139 Potassium 3.6 Chloride 110 H Carbon Dioxide 21 L BUN 16 Creatinine 1.08 Glucose 88 Calcium 9.1 - ABG Interpretation ABG results: PT/INR, D-dimer PT 11.3 Seconds (9.4-12.1) 04/20/18 15:43 Consult Discharge Plan - Plan Referrals: NONE,PCP [Primary Care Provider] -
[2018-04-24] MEDS: *HR* LORazepam 2 MG/ML VIAL IVP PRN ×3 (02:07→11:08)
[2018-04-24 07:58] LABS: Basophils # 0.1 K/mcL (0.0-0.2); Eosinophils # 0.5 K/mcL (0.0-0.6); Eosinophils % 5.8 %; Hematocrit 44.7 % (37.5-50.1); Immature Granulocytes % 0.4 % (0-4); Lymphocytes # 2.2 K/mcL (0.6-4.6); Lymphocytes % 27.5 %; Mean Corpuscular HGB Conc 35.8 g/dL (31.6-35.5); Mean Corpuscular Hemoglobin 33.4 pg (28.0-33.3); Mean Corpuscular Volume 93.3 fL (83.0-100.0); Mean Platelet Volume 8.8 fL (9.4-12.4); Monocytes # 0.7 K/mcL (0.0-1.3); Monocytes % 8.3 %; Neutrophils # 4.6 K/mcL (1.6-8.9); Platelet Count 199 K/mcL (140-400); Red Blood Count 4.79 M/mcL (4.19-5.50); Red Cell Distribution Width 13.9 % (11.5-14.5)
[2018-04-24] MEDS: amLODIPine 5 MG TABLET PO SCH (09:17)
[2018-04-24] MEDS: Lisinopril 20 MG TABLET PO SCH (09:18)
[2018-04-24] MEDS: Nicotine 21 MG PATCH.TD24 TD SCH (09:18)
[2018-04-24] MEDS: Multivit/Ca/Min/Fe/FA 1 TAB TABLET PO SCH (09:18)
[2018-04-24] MEDS: Thiamine (B-1) 100 MG TABLET PO SCH (09:18)
[2018-04-24] MEDS: Folic Acid 1 MG TABLET PO SCH (09:18)
[2018-04-24] MEDS: Loratadine 10 MG TABLET PO SCH (09:18)
[2018-04-24] MEDS: Gabapentin 300 MG CAPSULE PO SCH ×3 (09:18→21:13)
[2018-04-24 09:48] LABS: BUN/Creatinine Ratio 13 (6-26); Blood Urea Nitrogen 15 mg/dL (6-20); Calcium 9.2 mg/dL (8.6-10.3); Carbon Dioxide 21 mEq/L (23-29); Chloride 110 mEq/L (98-107); Glucose 96 mg/dL (70-105); Osmolality,Calculated 287 (280-300); Potassium 3.7 mEq/L (3.5-5.1); Sodium 138 mEq/L (136-145); eGFR For African Americans > 60 (> 60); eGFR For Non-African Americans > 60 (> 60)
--- NOTE | 2018-04-24 13:57 | Internal Med Progress Note ---
Date of Encounter: 04/24/18 Time of Encounter: 13:54 - Assessment and plan (1) Alcohol withdrawal delirium, acute, hyperactive Current Visit: Yes Status: Acute Assessment and plan: Continue current management per [facility] protocol. Continue supportive care with multivitamins and thiamine and folic acid. break out worker consulted to look into arrangements for alcohol rehabilitation for the patient. [facility] scores on 04/23 severe >20. He required librium dose increased to 100 mg TID today improved and CIWA scores 4-12. He requests to be discharged but given recent increase in Librium and Ativan use, would be unsafe. Will attempted to taper today for patient back to 50 mg QID (2) Hypertension Current Visit: Yes Status: Chronic Assessment and plan: Blood pressure initially was elevated. Continue home lisinopril and amlodipine, which was started during this admisison. BP is stable. Qualifiers: Hypertension type: essential hypertension Qualified Code(s): I10 - Essential (primary) hypertension (3) DVT prophylaxis Current Visit: Yes Status: Acute Assessment and plan: SCDs while lying down. - Time Spent With Patient Total time spent is greater than 50% in coordination of care (as documented) at patient's floor/unit and/or counseling patient: - Subjective Interval history: Patient had agitation and stated to nursing that he would like to leave AMA. - Constitutional Vitals: Temp Pulse Resp BP Pulse Ox 97.9 F 76 12 98/64 95 04/24/18 11:16 04/24/18 11:16 04/24/18 11:16 04/24/18 11:16 04/24/18 11:16 General appearance: Present: cooperative, disheveled, no acute distress, answers questions appropriately - Head Head exam: Present: atraumatic, normocephalic - Eye Eye exam: Present: PERRL, conjuntiva pink, sclera anicteric Pupils: Present: PERRL - Neck Neck exam general surgery: Present: supple, trachea midline. Absent: lymphadenopathy - Respiratory Respiratory exam: Present: CTAB. Absent: accessory muscle use, rales, rhonchi, wheezes - Cardiovascular Cardiovascular exam: Present: RRR, +S1, +S2. Absent: diastolic murmur, gallop, rubs, systolic murmur - GI/Abdominal GI/Abdominal exam: Present: normal bowel sounds, soft, no peritoneal signs. Absent: distended, tenderness - Extremities Exam Extremities exam: Present: warm, radial pulses palpable and symmetrical. Absent : calf tenderness, cyanotic, pedal edema - Neurological Exam Neurological exam: Present: CN II-XII intact, oriented X3, no focal deficits. Absent: pronater drift, facial droop, speech deficit - Skin Skin exam: Present: dry, intact Internal Medicine: Result - Labs CBC & Chem 7: 04/24/18 07:18 04/24/18 07:18 Labs: Short CBC 04/24/18 Range/Units 07:18 WBC 8.1 (4.3-11.1) K/mcL Hgb 16.0 (12.9-16.9) g/dL Hct 44.7 (37.5-50.1) % Plt Count 199 (140-400) K/mcL Neutrophils # 4.6 (1.6-8.9) K/mcL BMP 04/24/18 07:18 Sodium 138 Potassium 3.7 Chloride 110 H Carbon Dioxide 21 L BUN 15 Creatinine 1.17 Glucose 96 Calcium 9.2 - ABG Interpretation ABG results: PT/INR, D-dimer PT 11.3 Seconds (9.4-12.1) 04/20/18 15:43 Consult Discharge Plan - Plan Referrals: NONE,PCP [Primary Care Provider] -
[2018-04-24] MEDS: traMADol 50 MG TABLET PO PRN (16:25)
[2018-04-25 05:01] LABS: Basophils # 0.1 K/mcL (0.0-0.2); Basophils % 1.3 %; Eosinophils # 0.5 K/mcL (0.0-0.6); Eosinophils % 6.9 %; Hematocrit 45.1 % (37.5-50.1); Hemoglobin 15.9 g/dL (12.9-16.9); Immature Granulocytes % 0.3 % (0-4); Lymphocytes # 2.3 K/mcL (0.6-4.6); Mean Corpuscular HGB Conc 35.3 g/dL (31.6-35.5); Mean Corpuscular Hemoglobin 33.1 pg (28.0-33.3); Mean Platelet Volume 8.7 fL (9.4-12.4); Monocytes # 0.6 K/mcL (0.0-1.3); Monocytes % 7.9 %; Neutrophils # 3.5 K/mcL (1.6-8.9); Platelet Count 208 K/mcL (140-400); Red Cell Distribution Width 13.9 % (11.5-14.5); Segmented Neutrophils % 50.6 %
[2018-04-25 05:22] LABS: BUN/Creatinine Ratio 14 (6-26); Blood Urea Nitrogen 17 mg/dL (6-20); Calcium 9.5 mg/dL (8.6-10.3); Carbon Dioxide 23 mEq/L (23-29); Chloride 109 mEq/L (98-107); Glucose 91 mg/dL (70-105); Osmolality,Calculated 289 (280-300); Potassium 3.9 mEq/L (3.5-5.1); Sodium 139 mEq/L (136-145); eGFR For African Americans > 60 (> 60); eGFR For Non-African Americans > 60 (> 60)
[2018-04-25] MEDS: Nicotine 21 MG PATCH.TD24 TD SCH (09:20)
[2018-04-25] MEDS: Loratadine 10 MG TABLET PO SCH (09:21)
[2018-04-25] MEDS: Thiamine (B-1) 100 MG TABLET PO SCH (09:21)
[2018-04-25] MEDS: Lisinopril 20 MG TABLET PO SCH (09:21)
[2018-04-25] MEDS: Gabapentin 300 MG CAPSULE PO SCH ×3 (09:21→20:03)
[2018-04-25] MEDS: Folic Acid 1 MG TABLET PO SCH (09:22)
[2018-04-25] MEDS: Multivit/Ca/Min/Fe/FA 1 TAB TABLET PO SCH (09:22)
[2018-04-25] MEDS: traMADol 50 MG TABLET PO PRN (10:00)
[2018-04-25 15:58] VITALS: BP 113/78
--- NOTE | 2018-04-25 17:02 | Internal Med Progress Note ---
Date of Encounter: 04/25/18 Time of Encounter: 16:58 - Assessment and plan (1) Alcohol withdrawal delirium, acute, hyperactive Current Visit: Yes Status: Acute Assessment and plan: Continue current management per [facility] protocol. Continue supportive care with multivitamins and thiamine and folic acid. bridge ironworker helper consulted to look into arrangements for alcohol rehabilitation for the patient. [facility] scores on 04/23 severe >20. He required librium dose increased to 100 mg TID today improved and CIWA scores 4-12. He requests to be discharged but given recent increase in Librium and Ativan use, would be unsafe. Will attempted to taper today for patient back to 50 mg QID 04/25: CIWA scores now <10, has good insight. Psychiatry to evaluate patient today since he displayed such agitated and potential harmful behavior to himself and others yesterday. Currently he is medically stable and seems to have good insight on incidents yesterday. If patient is clear from Psychiatry perspective, then he is okay to discharge. (2) Hypertension Current Visit: Yes Status: Chronic Assessment and plan: Blood pressure initially was elevated. Continue lisinopril and amlodipine BP is now within normal limits Qualifiers: Hypertension type: essential hypertension Qualified Code(s): I10 - Essential (primary) hypertension (3) DVT prophylaxis Current Visit: Yes Status: Acute Assessment and plan: SCDs while lying down. - Time Spent With Patient Total time spent is greater than 50% in coordination of care (as documented) at patient's floor/unit and/or counseling patient: - Subjective Interval history: 04/24: Patient had agitation and stated to nursing that he would like to leave AMA. He became severely agitated and made a few threats to nursing. He denied hallucinations at this point. Patient needed pink slip until a Psychiatry evaluation. 04/25: Nursing and patient also report to me he is more calm. He apologized for acute agitative behavior yesterday. He denies hallucination or agitation, denies feeling to harm himself or others. He gives appropriate insight to his behavior. - Constitutional Vitals: Temp Pulse Resp BP Pulse Ox 98.4 F 79 15 113/78 93 04/25/18 15:48 04/25/18 15:48 04/25/18 15:48 04/25/18 15:48 04/25/18 15:48 General appearance: Present: cooperative, disheveled, no acute distress, answers questions appropriately - Head Head exam: Present: atraumatic, normocephalic - Eye Eye exam: Present: PERRL, conjuntiva pink, sclera anicteric Pupils: Present: PERRL - Neck Neck exam general surgery: Present: supple, trachea midline. Absent: lymphadenopathy - Respiratory Respiratory exam: Present: CTAB. Absent: accessory muscle use, rales, rhonchi, wheezes - Cardiovascular Cardiovascular exam: Present: RRR, +S1, +S2. Absent: diastolic murmur, gallop, rubs, systolic murmur - GI/Abdominal GI/Abdominal exam: Present: normal bowel sounds, soft, no peritoneal signs. Absent: distended, tenderness - Extremities Exam Extremities exam: Present: warm, radial pulses palpable and symmetrical. Absent : calf tenderness, cyanotic, pedal edema - Neurological Exam Neurological exam: Present: CN II-XII intact, oriented X3, no focal deficits. Absent: pronater drift, facial droop, speech deficit - Skin Skin exam: Present: dry, intact Internal Medicine: Result - Labs CBC & Chem 7: 04/25/18 04:45 04/25/18 04:45 Labs: Short CBC 04/25/18 Range/Units 04:45 WBC 7.0 (4.3-11.1) K/mcL Hgb 15.9 (12.9-16.9) g/dL Hct 45.1 (37.5-50.1) % Plt Count 208 (140-400) K/mcL Neutrophils # 3.5 (1.6-8.9) K/mcL BMP 04/25/18 04:45 Sodium 139 Potassium 3.9 Chloride 109 H Carbon Dioxide 23 BUN 17 Creatinine 1.19 Glucose 91 Calcium 9.5 - ABG Interpretation ABG results: PT/INR, D-dimer PT 11.3 Seconds (9.4-12.1) 04/20/18 15:43 Consult Discharge Plan - Plan Referrals: NONE,PCP [Primary Care Provider] - Prescriptions: Chlordiazepoxide [Librium] See Taper PO DAILY 9 Days #33 capsule
--- NOTE | 2018-04-25 17:33 | Discharge Summary ---
- NOTES TO OUTPATIENT PROVIDER Notes to Outpatient Provider: Follow-up with primary care for hypertension Date of Encounter: 04/25/18 Time of Encounter: 17:28 - Discharge Diagnosis (1) Alcohol withdrawal delirium, acute, hyperactive Priority: Primary Status: Resolved (2) Hypertension Priority: Secondary Status: Chronic Qualifiers: Hypertension type: essential hypertension Qualified Code(s): I10 - Essential (primary) hypertension (3) DVT prophylaxis Priority: Secondary Status: Acute Hospital course: 53-year-old male with past medical history of alcohol abuse and hypertension presents to the emergency room for evaluation of alcohol withdrawal medical clearance to be placed in substance abuse facility. The patient has history of attempting to quit drinking alcohol however trouble with withdrawal symptoms was always a barrier for him to quit. While in the Er he start to have retching vomiting and tremors. Intermuscular dose of Ativan was given and patient was admitted for further evaluation. He was started on [facility] protocol with Ativan and started on Librium taper. CIWA scores escalated >20s and patient had severe hallucinations but adjusting Librium improved symptoms. There was an instance of patient with acute agitation attempting to leave AMA and he needed pink slipped until withdrawal symptoms improved. Withdrawal symptoms did improve and patient was evaluated by Psychiatry who deemed patient is clear for discharge. He was discharged to alcohol rehab in stable condition with a Librium taper. - Time Spent with Patient Total time spent providing and/or coordinating discharge services: - Discharge Medications Prescriptions: Chlordiazepoxide [Librium] See Taper PO DAILY 9 Days #33 capsule Home Medications: Duloxetine HCl [Cymbalta] 60 mg PO DAILY 04/20/18 [History] Gabapentin [Neurontin] 600 mg PO TID 04/20/18 [History] Lisinopril [Zestril] 20 mg PO DAILY 04/20/18 [History] Loratadine [Allergy Relief] 10 mg PO DAILY 04/20/18 [History] Chlordiazepoxide [Librium] See Taper PO DAILY 9 Days #33 capsule 04/25/18 [Rx] Folic Acid 1 mg PO DAILY #0 tablet 04/25/18 [Rx] Multivit/Ca/Min/Fe/FA [Thera M Plus] 1 tab PO DAILY #0 tablet 04/25/18 [Rx] Nicotine Patch [Nicoderm] 21 mg TD DAILY patch.[id number] 04/25/18 [Rx] Thiamine (B-1) [Vitamin B-1] 100 mg PO DAILY #0 tablet 04/25/18 [Rx] Allergies/Adverse Reactions: 3 Allergy/AdvReac Type Severity Reaction Status Date / Time ciprofloxacin [From Cipro] Allergy Hives Verified 04/20/18 10:47 codeine Allergy Nausea Verified 08/08/15 19:36 Date of admission: 04/20/18 14:20 Primary care physician: PCP NONE Consults: 04/24/18 16:51 Consult to Psychiatry [CONS] Routine Consulting Provider: Psychiatry Keshia Reason for Consult: Witmer slipped, alcohol withdrawal Call Completed: Yes - Constitutional Vitals: Temp Pulse Resp BP Pulse Ox 98.4 F 79 15 113/78 93 04/25/18 15:48 04/25/18 15:48 04/25/18 15:48 04/25/18 15:48 04/25/18 15:48 General appearance: Present: cooperative, disheveled, no acute distress, answers questions appropriately - Head Head exam: Present: atraumatic, normocephalic - Eye Eye exam: Present: PERRL, conjuntiva pink, sclera anicteric Pupils: Present: PERRL - Neck Neck exam general surgery: Present: supple, trachea midline. Absent: lymphadenopathy - Respiratory Respiratory exam: Present: CTAB. Absent: accessory muscle use, rales, rhonchi, wheezes - Cardiovascular Cardiovascular exam: Present: RRR, +S1, +S2. Absent: diastolic murmur, gallop, rubs, systolic murmur - GI/Abdominal GI/Abdominal exam: Present: normal bowel sounds, soft, no peritoneal signs. Absent: distended, tenderness - Extremities Exam Extremities exam: Present: warm, radial pulses palpable and symmetrical. Absent : calf tenderness, cyanotic, pedal edema - Neurological Exam Neurological exam: Present: CN II-XII intact, oriented X3, no focal deficits. Absent: pronater drift, facial droop, speech deficit - Skin Skin exam: Present: dry, intact - Patient Status Disposition: Transfer Other Condition: Fair Functional capacity at discharge: independent ambulation Overall status at discharge: patient is back to baseline - Discharge Instructions Follow Up With: NONE,PCP [Primary Care Provider] - Forms: ED Satisfaction Letter - Diet and Activity Activity: increase activity as tolerated Diet: advance to your usual diet
--- NOTE | 2018-04-25 18:54 | Consult Note ---
Date of Encounter: 04/25/18 Time of Encounter: 17:30 Assessment & Recommendation (1) Opioid dependence in remission Current visit: Yes Status: Resolved (2) Alcohol dependence with withdrawal with perceptual disturbance Current visit: Yes Status: Resolved (3) Alcohol withdrawal delirium, acute, hyperactive Current visit: Yes Status: Resolved (4) Other specified depressive episodes Current visit: Yes Status: Chronic History of Present Illness Patient: new to practice Requesting Physician: Jalen Brown MD Reason for consult: alcohol withdrawal History of present illness: Mr. Herron is a 53 year old male The patient is a 53-year-old white male. Chief complaint yes I would like to go to rehabilitation at [facility]. History of present illness. The patient reports that he has a remote history of opiate dependence and was able to get better and achieve remission. However after being free of opiates he went back to drinking. He began to drink excessively and suffered a complicated withdrawal. This included episodes of confusion behavioral this inhibition and hallucinations he is able to tell me that he saw some shadows of people he saw some snakes. The patient was medicated with Ativan and improved. The patient reports that he has been treated for depression with Cymbalta 60 mg per day. The patient was planning to go to [facility] today but was interviewed by late in the day. The patient added that his social history reveals that he lives alone he lives in [facility] he injured his back in 1998 and is on SSI or some other form disability. On confrontational testing the patient perseverated giving some the same incorrect answers. He did learn by repeated trials and seemed to have some grasp short-term memory by multiple modalities. The patient was not having hallucinations or delusions or disorientation at the time of the interview he was on special observation but noted no suicidal ideation no suicidal behavior. He no longer had intoxication. The patient was able to identify some of the goals some of the treatment options and Alcoholics Anonymous. He did not evidence significant this in coordination ophthalmoplegia and he had only mild nystagmus CC: Jalen Brown MD Past Med Surg Social Fam HX - Past Medical History Source: patient Medical history: no medical history - Past Psychiatric History Psychiatric history: Reports: depression Family psychiatric history: Unknown Family History of Suicide: Unknown - Past Surgical History Surgical History: orthopedic, other - Social History Smoking Status: Current every day smoker Smokeless Tobacco Status: No Alcohol use: none Drug use: opiates, other Occupational status: disabled Current living situation: Home - Independent Activity Level: Independent ambulation Recent Out of Country Travel Within the Last 8 Weeks: No Exposure or Possible Exposure to Illness During Travel: No Medications & Allergies Duloxetine HCl [Cymbalta] 60 mg PO DAILY 04/20/18 [History] Gabapentin [Neurontin] 600 mg PO TID 04/20/18 [History] Lisinopril [Zestril] 20 mg PO DAILY 04/20/18 [History] Loratadine [Allergy Relief] 10 mg PO DAILY 04/20/18 [History] Chlordiazepoxide [Librium] See Taper PO DAILY 9 Days #33 capsule 04/25/18 [Rx] Folic Acid 1 mg PO DAILY #0 tablet 04/25/18 [Rx] Multivit/Ca/Min/Fe/FA [Thera M Plus] 1 tab PO DAILY #0 tablet 04/25/18 [Rx] Nicotine Patch [Nicoderm] 21 mg TD DAILY patch.[id number] 04/25/18 [Rx] Thiamine (B-1) [Vitamin B-1] 100 mg PO DAILY #0 tablet 04/25/18 [Rx] 3 Allergy/AdvReac Type Severity Reaction Status Date / Time ciprofloxacin [From Cipro] Allergy Hives Verified 04/20/18 10:47 codeine Allergy Nausea Verified 08/08/15 19:36 Review of Systems Neurological: Denies: headache, weakness, numbness, confusion, memory loss Psychiatric: Denies: depression, anxiety, abnormal sleep pattern, suicidal ideation, homicidal ideation, auditory hallucinations, visual hallucinations, irritability Psychiatry Exam - Constitutional Vitals: Temp Pulse Resp BP Pulse Ox 98.4 F 79 15 113/78 93 04/25/18 15:48 04/25/18 15:48 04/25/18 15:48 04/25/18 15:48 04/25/18 15:48 General appearance: age & developmentally appropriate, well-groomed, well- nourished - Musculoskeletal Gait: normal Station: relaxed Strength & Tone: normal for patient - Psychiatric Patient Orientation: Yes Person, Yes Time, Yes Place Level of alertness: Alert Behavior: calm, cooperative Psychomotor activity: Normal Eye Contact: Maintains Eye Contact Mood Description: Euthymic/stable Affect description: congruent with mood, full range Speech Volume: Normal Speech pattern: normal rate, normal rhythm, normal tone, fluent, spontaneous Language & Vocabulary: consistent with education Thought Process: Linear, Goal Oriented Thought Content: No Suicidal ideation, No Homicidal ideation, No Overt delusions Perceptual Disturbances: No Auditory hallucinations, No Visual hallucinations Attention Span Ability: Capable of Focused Attention Memory Description: Grossly Intact Patient Reliability: Reliable Historian Fund of knowledge: Yes abstraction ability, Yes aware of current events Intelligence Estimate: Average Judgment: Good (some trouble with short term memory that improved with repetition) Insight: Partial Results - Labs Labs: Laboratory Last Values WBC 7.0 K/mcL (4.3-11.1) 04/25/18 04:45 RBC 4.80 M/mcL (4.19-5.50) 04/25/18 04:45 Hgb 15.9 g/dL (12.9-16.9) 04/25/18 04:45 Hct 45.1 % (37.5-50.1) 04/25/18 04:45 MCV 94.0 fL (83.0-100.0) 04/25/18 04:45 MCH 33.1 pg (28.0-33.3) 04/25/18 04:45 MCHC 35.3 g/dL (31.6-35.5) 04/25/18 04:45 RDW 13.9 % (11.5-14.5) 04/25/18 04:45 Plt Count 208 K/mcL (140-400) 04/25/18 04:45 MPV 8.7 fL (9.4-12.4) L 04/25/18 04:45 Immature Gran % 0.3 % (0-4) 04/25/18 04:45 Seg Neutrophils % 50.6 % 04/25/18 04:45 Lymphocytes % 33.0 % 04/25/18 04:45 Monocytes % 7.9 % 04/25/18 04:45 Eosinophils % 6.9 % 04/25/18 04:45 Basophils % 1.3 % 04/25/18 04:45 Neutrophils # 3.5 K/mcL (1.6-8.9) 04/25/18 04:45 Lymphocytes # 2.3 K/mcL (0.6-4.6) 04/25/18 04:45 Monocytes # 0.6 K/mcL (0.0-1.3) 04/25/18 04:45 Eosinophils # 0.5 K/mcL (0.0-0.6) 04/25/18 04:45 Basophils # 0.1 K/mcL (0.0-0.2) 04/25/18 04:45 PT 11.3 Seconds (9.4-12.1) 04/20/18 15:43 INR 1.1 04/20/18 15:43 APTT 27.4 Seconds (26.0-36.0) 04/20/18 15:43 Sodium 139 mEq/L (136-145) 04/25/18 04:45 Potassium 3.9 mEq/L (3.5-5.1) 04/25/18 04:45 Chloride 109 mEq/L (98-107) H 04/25/18 04:45 Carbon Dioxide 23 mEq/L (23-29) 04/25/18 04:45 BUN 17 mg/dL (6-20) 04/25/18 04:45 Creatinine 1.19 mg/dL (0.70-1.30) 04/25/18 04:45 Est GFR ( Amer) > 60 (> 60) 04/25/18 04:45 Est GFR (Non-Af Amer) > 60 (> 60) 04/25/18 04:45 BUN/Creatinine Ratio 14 (6-26) 04/25/18 04:45 Glucose 91 mg/dL (70-105) 04/25/18 04:45 Calculated Osmolality 289 (280-300) 04/25/18 04:45 Calcium 9.5 mg/dL (8.6-10.3) 04/25/18 04:45 Phosphorus 2.5 mg/dL (2.7-4.5) L 04/21/18 04:43 Magnesium 1.9 mg/dL (1.6-2.6) 04/21/18 04:43 Total Bilirubin 0.5 mg/dL (0.3-1.0) 04/21/18 04:43 AST 24 Units/L (13-39) 04/21/18 04:43 ALT 29 Units/L (7-52) 04/21/18 04:43 Alkaline Phosphatase 72 Units/L (34-104) 04/21/18 04:43 Serum Total Protein 6.0 g/dL (6.4-8.9) L 04/21/18 04:43 Albumin 3.3 g/dL (3.5-5.7) L 04/21/18 04:43 Globulin 2.7 g/dL (2.4-3.5) 04/21/18 04:43 Albumin/Globulin Ratio 1.2 (1.1-2.2) 04/21/18 04:43 Triglycerides 102 mg/dL (< 150) 04/21/18 04:43 Cholesterol 128 mg/dL (< 200) 04/21/18 04:43 LDL Cholesterol, Calc 67 mg/dL (0-99) 04/21/18 04:43 VLDL Cholesterol, Calc 20 mg/dL (< 31) 04/21/18 04:43 HDL Cholesterol 41 mg/dL (40-59) 04/21/18 04:43 Cholesterol/HDL Ratio 3.1 (0-4.9) 04/21/18 04:43 Amylase 58 Units/L (29-103) 04/20/18 15:43 Lipase 30 Units/L (11-82) 04/20/18 15:43 Urine Color Yellow (Yellow) 04/20/18 11:05 Urine Clarity Clear (Clear) 04/20/18 11:05 Urine pH 7.5 pH Units (5.0-8.0) 04/20/18 11:05 Ur Specific [place] 1.009 (1.010-1.025) L 04/20/18 11:05 Urine Protein Negative mg/dL (Neg-Trace) 04/20/18 11:05 Urine Glucose (UA) Normal mg/dL (Normal) 04/20/18 11:05 Urine Ketones Negative mg/dL (Negative) 04/20/18 11:05 Urine Blood Negative (Negative) 04/20/18 11:05 Urine Nitrite Negative (Negative) 04/20/18 11:05 Urine Bilirubin Negative (Negative) 04/20/18 11:05 Urine Urobilinogen Normal mg/dL (Normal) 04/20/18 11:05 Ur Leukocyte Esterase Negative (Negative) 04/20/18 11:05 Ur Culture Indicated? NO (NO) 04/20/18 11:05 Urine Opiates Screen Negative ng/mL (Aqeoxh=314) 04/20/18 11:05 Ur Barbiturates Screen Negative ng/mL (Dzznfy=833) 04/20/18 11:05 Ur Phencyclidine Scrn Negative ng/mL (Cutoff=25) 04/20/18 11:05 Ur Amphetamines Screen Negative ng/mL (Dokdzt=2778) 04/20/18 11:05 U Benzodiazepines Scrn Negative ng/mL (Rpihyq=471) 04/20/18 11:05 Urine Cocaine Screen Negative ng/mL (Cutoff= 300) 04/20/18 11:05 U Marijuana (THC) Screen Negative ng/mL (Cutoff = 50) 04/20/18 11:05 Ethyl Alcohol < 10 mg/dL (Less than 10) 04/20/18 11:24 Hepatitis A IgM Ab Nonreactive (Nonreactive) 04/20/18 11:24 Hep Bs Antigen Reactive (Nonreactive) H 04/20/18 11:24 Hep Bs Ag Confirmation POSITIVE (Non Confirmed) A 04/20/18 11:24 Hep B Core IgM Ab Nonreactive (Nonreactive) 04/20/18 11:24 Hepatitis C Ab Screen Reactive (Nonreactive) H 04/20/18 11:24 Consult Discharge Plan - Plan Referrals: NONE,PCP [Primary Care Provider] - Prescriptions: Chlordiazepoxide [Librium] See Taper PO DAILY 9 Days #33 capsule
== END 2018-04-25 21:56 | disposition other institution (70) | DRG 773 ==
LOC: 3ANU 10:42 → EMEROO 10:42 → 3ANU 13:28 → SUATTDRO 14:20 → 3ANU 14:30
PROVIDERS: ADMIT Internal Medicine Nephrology; ATTEND Student in an Organized Health Care Education/Training Program